=== PATIENT | male | born 1935 | race Caucasian/White ===

== ENCOUNTER → 2019-11-19 | Outpatient (CLI) | payer MEDICARE, OTHER ==
[2019-11-20 01:33] LABS: BILIRUBIN,URINE NEGATIVE (NEGATIVE); UROBILINOGEN,URINE NORMAL (NEGATIVE)
[2019-11-20 01:35] LABS: APPEARANCE,URINE CLOUDY (CLEAR); UA COLOR YELLOW (YELLOW)
== END | disposition home or self-care (01) ==
LOC: NPLAB 23:20
PROVIDERS: ATTEND Physician Assistant Medical
DX: R33.9 Retention of urine, unspecified (principal)
CPT/HCPCS: 81002; 87086

== ENCOUNTER → 2021-09-26 | Outpatient (CLI) | payer MEDICARE, OTHER ==
[2021-09-26 19:40] LABS: BILIRUBIN,URINE NEGATIVE (NEGATIVE); UROBILINOGEN,URINE 0.2 E.U./dL (0.2)
== END | disposition home or self-care (01) ==
LOC: NPLAB 18:59
DX: J44.9 Chronic obstructive pulmonary disease, unspecified (principal); Z57.5 Occupational exposure to toxic agents in other industries; I25.84 Coronary atherosclerosis due to calcified coronary lesion; I50.42 Chronic combined systolic (congestive) and diastolic (congestive) heart failure; I51.7 Cardiomegaly; R94.5 Abnormal results of liver function studies; Z79.899 Other long term (current) drug therapy
CPT/HCPCS: 81001; 87077; 87086; 87186

== ENCOUNTER → 2022-10-12 | Outpatient (CLI) | payer MEDICARE, OTHER ==
[2022-10-12 19:49] LABS: BILIRUBIN,URINE NEGATIVE (NEGATIVE)
== END | disposition home or self-care (01) ==
LOC: NPLAB 19:23
PROVIDERS: ATTEND Internal Medicine
DX: N39.0 Urinary tract infection, site not specified (principal)
CPT/HCPCS: 81001; 87077; 87086; 87186